=== PATIENT | male | born 1980 | race Caucasian/White ===

== ENCOUNTER 2022-08-24 16:02 | Emergency (ER) | payer OTHER ==
[2022-08-24] MEDS ORDERED: LORazepam 1 MG TAB PO STA (16:23)
[2022-08-24] MEDS ORDERED: IPRATROPIUM-ALBUTEROL 3 ML NEB INHALATION STA (16:23)
[2022-08-24] MEDS ORDERED: ONDANSETRON 4 MG TAB PO STA (16:23)
--- NOTE | 2022-08-24 16:23 | ED ---
Anxiety HPI - General Chief Complaint: Shortness of Breath Stated Complaint: SOB Time Seen by Provider: 08/24/22 16:05 Source: patient, EMS, RN notes reviewed, old records reviewed Mode of arrival: EMS Limitations: no limitations - History of Present Illness Initial Comments: This is a 42-year-old male to the emergency department for evaluation presents today for evaluation shortness of breath sudden onset shortness of breath while in the car with his . Patient admits to mild anxiety is a smoker does have COPD. Increased cough and congestion as of late, patient states he isn't difficulty catching his breath no chest pain no significant recent travels or sick contacts or fevers. Patient does smoke MD Complaint: anxiety, shortness of breath -: hour(s) Symptoms: dyspnea, palpitations Place: home (Patient was driving in car with his ) Previous History of Same: Yes Severity: moderate Quality: constant Provoking factors: emotional stress Improves With: deep breaths Worsens With: nothing Associated symptoms: shortness of breath, palpitations - Related Data Allergies/Adverse Reactions: Allergies Allergy/AdvReac Type Severity Reaction Status Date / Time No Known Allergies Allergy Verified 08/24/22 16:13 Review of Systems ROS Statement: Those systems with pertinent positive or pertinent negative responses have been documented in the HPI. ROS Other: All systems not noted in ROS Statement are negative. Past Medical History Past Medical History: COPD, Hyperlipidemia, Hypertension History of Any Multi-Drug Resistant Organisms: None Reported Past Surgical History: No Surgical Hx Reported Past Psychological History: Depression Smoking Status: Current every day smoker Past Alcohol Use History: None Reported Past Drug Use History: None Reported General Exam Limitations: no limitations General appearance: alert, in no apparent distress Head exam: Present: atraumatic, normocephalic, normal inspection Eye exam: Present: normal appearance, PERRL, EOMI. Absent: scleral icterus, conjunctival injection, periorbital swelling ENT exam: Present: normal exam, mucous membranes moist Neck exam: Present: normal inspection. Absent: tenderness, meningismus, lymphadenopathy Respiratory exam: Present: wheezes. Absent: respiratory distress, rales, rhonchi, stridor Cardiovascular Exam: Present: regular rate, normal rhythm, normal heart sounds. Absent: systolic murmur, diastolic murmur, rubs, gallop, clicks GI/Abdominal exam: Present: soft, normal bowel sounds. Absent: distended, tenderness, guarding, rebound, rigid Extremities exam: Present: normal inspection, full ROM, normal capillary refill. Absent: tenderness, pedal edema, joint swelling, calf tenderness Back exam: Present: normal inspection Neurological exam: Present: alert, oriented X3, CN II-XII intact Psychiatric exam: Present: normal affect, normal mood Skin exam: Present: warm, dry, intact, normal color. Absent: rash Course Vital Signs 08/24/22 08/24/22 08/24/22 16:09 16:17 16:37 Temperature 96.6 F L Pulse Rate 80 89 Respiratory 24 26 H 24 Rate Blood Pressure 168/96 183/97 O2 Sat by Pulse 99 99 Oximetry - Reevaluation(s) Reevaluation #1: 08/24/22 17:00 Medical record is reviewed Reevaluation #2: 08/24/22 17:00 Patient does have significant improvement here in the ER Reevaluation #3: 08/24/22 17:00 Patient informed of results and questions answered Reevaluation #4: 08/24/22 17:00 Was pt. sent in by a medical professional or institution? @ -no Did you speak to anyone other than the patient for history? @ -no Did you review nursing and triage notes? @ -a Were old charts reviewed? @ -agree Differential Diagnosis? @ -dyspnea as prior EKG interpreted by me (3pts min.)? @ -yes X-rays interpreted by me (1pt min.)? @ -yes CT interpreted by me (1pt min.)? @ -no U/S interpreted by me (1pt. min.)? @ -no What testing was considered but not performed? (CT, X-rays, U/S, labs)? Why? @ no What meds were considered but not given? Why? @ -no Did you discuss the management of the patient with other professionals? @ -no Did you reconcile home meds? @ -no Was smoking cessation discussed for >3mins.? @ -yes Was critical care preformed (if so, how long)? @ -no Were there social determinants of health that impacted care today? How? (Homelessness, low income, unemployed, alcoholism, drug addiction, transportation, low edu. Level, literacy, decrease access to med. care, intermediate, rehab)? @ -no Was there de-escalation of care discussed even if they declined? (Discuss DNR or withdrawal of care, Hospice)? @ -no What co-morbidities impacted this encounter? (DM, HTN, Smoking, COPD, CAD, Cancer, CVA, Hep., AIDS, mental health diagnosis, sleep apnea, morbid obesity)? @ -smoking.copd Was patient admitted / discharged? @ -dc Undiagnosed new problem with uncertain prognosis? @ -copd, anxiety Drug Therapy requiring intensive monitoring for toxicity (Heparin, Nitro, Insulin, Cardizem)? @ -no Were any procedures done? @ -no Diagnosis/symptom? @ -copd, bronchitis Acute, or Chronic, or Acute on Chronic? @ -acute on chronia Uncomplicated (without systemic symptoms) or Complicated (systemic symptoms)? @ -uncomplicated Side effects of treatment? @ -cassius Exacerbation, Progression, or Severe Exacerbation] @ xacerbation] Poses a threat to life or bodily function? @ -[no] Reevaluation #5: 08/24/22 17:00 Differential Dyspnea: Coronary syndrome, arrhythmia, tamponade, asthma, COPD, pulmonary embolism, pneumonia, pneumothorax, pulmonary effusion, anaphylaxis, diabetic ketoacidosis, flailed chest, pulmonary contusion, diaphragmatic rupture, anemia, neuromuscular, this is not meant to be an all-inclusive list. Medical Decision Making - Medical Decision Making 42 male to the emergency department with COPD exacerbation acute bronchitis. Patient placed on outpatient treatment feeling better here in the ER and can be discharged home - EKG Data -: EKG Interpreted by Me (EKG is sinus 77 SC 129 QRS 82 QTC 412) - Radiology Data Radiology results: report reviewed (Chest x-rays negative for acute disease), image reviewed Disposition Clinical Impression: Acute exacerbation of chronic obstructive pulmonary disease, Anxiety Disposition: HOME SELF-CARE Condition: Good Instructions (If sedation given, give patient instructions): Acute Bronchitis (ED), Chronic Bronchitis (ED) Is patient prescribed a controlled substance at d/c from ED?: No Referrals: None,Stated [Primary Care Provider] - 1-2 days Time of Disposition: 17:05
[2022-08-24] MEDS ORDERED: LORazepam 2 MG/ML INJ IV STA (16:24)
[2022-08-24] MEDS ORDERED: ONDANSETRON 4 MG/2 ML VIAL IVP STA (16:24)
[2022-08-24] MEDS ORDERED: SODIUM CHLORIDE 0.9% 500 ML 500 ML IV STA (16:24)
[2022-08-24 16:38] VITALS: BP 183/97; RESP 24
--- NOTE | 2022-08-24 16:45 | XR ---
EXAMINATION TYPE: XR chest 1V portable DATE OF EXAM: 08/24/2022 COMPARISON: NONE HISTORY: Shortness of breath TECHNIQUE: Single frontal view of the chest is obtained. FINDINGS: There is no focal air space opacity, pleural effusion, or pneumothorax seen. The cardiac silhouette size is within normal limits. The osseous structures are intact. IMPRESSION: No acute process.
[2022-08-24 17:08] VITALS: PULSE 71
[2022-08-24 17:38] VITALS: TEMP 98
== END 2022-08-24 17:35 | disposition home or self-care (01) ==
LOC: EC 16:02
DX: J44.1 Chronic obstructive pulmonary disease with (acute) exacerbation (principal); F41.9 Anxiety disorder, unspecified; I10 Essential (primary) hypertension; F32.A Depression, unspecified; F17.200 Nicotine dependence, unspecified, uncomplicated
CPT/HCPCS: 94640; 93005; 71045; 99285; 96374; 96375; 96361; J2060; J2405